=== PATIENT | female | born 1995 | race Caucasian/White ===

== ENCOUNTER 2023-06-09 19:16 | Emergency (ER) | payer OTHER ==
[~2023-06-09] VITALS: Ht 152.4 cm; Wt 99.8 kg
[2023-06-09 21:41] VITALS: BP 110/62
== END 2023-06-09 21:48 | disposition home or self-care (01) ==
LOC: ER 19:16
DX: G43.909 Migraine, unspecified, not intractable, without status migrainosus (principal); Z91.030 Bee allergy status; Z91.018 Allergy to other foods
CPT/HCPCS: 96374; 96375; 99283-25; A9270; J0780; J1200; J1885; J2405; J7030

== ENCOUNTER → 2024-01-24 | Outpatient (CLI) | payer OTHER ==
[2024-01-24 15:11] LABS: Candida Group, PCR NOT DETECTED (NOT DETECT); Candida glabrata-krusei, PCR NOT DETECTED (NOT DETECT)
[2024-01-24 15:12] LABS: Bacterial Vaginosis PCR Positive (NEGATIVE)
== END ==
LOC: LAB 12:49 → LAB SHORT 12:49
PROVIDERS: Advanced Practice Midwife
DX: Z01.419 Encounter for gynecological examination (general) (routine) without abnormal findings (principal); N92.1 Excessive and frequent menstruation with irregular cycle
CPT/HCPCS: 87481; 87661; 87801

== ENCOUNTER → 2024-03-11 | Outpatient (CLI) | payer OTHER | LOC: LAB SHORT 11:08 → LAB 11:08 | PROVIDERS: Advanced Practice Midwife | DX: Z01.419 Encounter for gynecological examination (general) (routine) without abnormal findings (principal) | CPT/HCPCS: G0123 ==

== ENCOUNTER 2024-08-25 06:23 | Day surgery (SDC) | payer OTHER ==
[~2024-08-25] VITALS: Ht 152.4 cm; Wt 104.9 kg
[2024-08-25] VITALS (17 sets, daily range): BP systolic 79–124; BP diastolic 54–93
[~2024-08-25 06:23] MED LIST: BUPROPION XL150 M1 PO; CeFAZolin Sodium 2,000 MG in NS 100 ML IV SCH; ESCI20 PO; Lactated Ringer's 1,000 ML IV SCH; MELATONIN5 M1 PO; NIAC500 PO; ROSUVASTATIN CA10 MG PO; SPIR50 PO; TOPI50 PO; VITAMIN D325 MC3 PO; VITB2 PO; ZYRTEC10 M2 PO
[2024-08-25] MEDS ORDERED: Phenazopyridine HCl 100 MG Tab PO SCH (06:25)
[2024-08-25] MEDS ORDERED: FentaNYL Citrate 50 MCG/ML 5 ML Injection ONE (06:30)
[2024-08-25] MEDS ORDERED: Sugammadex Sodium 200 MG/2ML SDV (100 MG/ML) ONE (06:30)
[2024-08-25] MEDS ORDERED: Ketorolac Tromethamine 30mg Vial ONE (06:30)
[2024-08-25] MEDS ORDERED: propofoL 20 ML IV ONE (06:30)
[2024-08-25] MEDS ORDERED: Dexamethasone Sod Phos 10 MG/ML 1ML VIAL ONE (06:30)
[2024-08-25] MEDS ORDERED: Rocuronium Bromide 10 MG/ML 5ML Injection IV ONE (06:30)
[2024-08-25] MEDS ORDERED: Ondansetron HCl 2 MG / ML 2ML Vial ONE (06:30)
[2024-08-25] MEDS ORDERED: PROP10 (06:53)
[2024-08-25] MEDS ORDERED: Bupivacaine 0.5% HCl 5 MG/ML 30MLVIAL ONE (07:01)
--- NOTE | 2024-08-25 07:19 | NUR ---
History, Chart, Medications and Allergies reviewed before start of procedure. Pre-Op teaching done. Pt verbalizes understanding. Patient confirms NPO status and agrees with scheduled surgery. PT UNABLE TO REMOVE LEFT NOSTRIL STUD AND L EARRING STUD. CHANDNI REFUSAL PAPERWORK SIGNED. PT GLASSES REMOVED AND GIVEN TO AT BS. PT BELONGINGS BAG PLACED UNDER RNEY.
[2024-08-25] MEDS ORDERED: Bupivacaine 0.5% Inj 10 ML Vial ONE (08:26)
[2024-08-25] MEDS ORDERED: Ondansetron HCl 2 MG / ML 2ML Vial IV PRN (10:00)
[2024-08-25] MEDS ORDERED: OxyCODONE HCL 5 MG TAB PO PRN ×2 (10:00→10:10)
[2024-08-25] MEDS ORDERED: Naloxone HCl 0.4MG / ML 1ML Vial IV PRN (10:00)
[2024-08-25] MEDS ORDERED: Metoclopramide HCl 5MG / ML 2ML Vial IV PRN (10:00)
[2024-08-25] MEDS ORDERED: Polyethylene Glycol 3350 17 gm PO PRN (10:05)
[2024-08-25] MEDS ORDERED: Simethicone 80 MG Chew PO PRN (10:05)
[2024-08-25] MEDS ORDERED: DiphenhydrAMINE HCL 25 MG Cap PO PRN (10:05)
[2024-08-25] MEDS ORDERED: FLU VACC TS2024-25(6MOS UP)/PF 45 MCG/0.5 ML SYRINGE IM SCH (10:05)
[2024-08-25] MEDS ORDERED: Lactated Ringer's 1,000 ML IV SCH (10:05)
[2024-08-25] MEDS ORDERED: HYDROmorphone HCl/Pf 1MG SYR IV PRN (10:05)
[2024-08-25] MEDS ORDERED: FentaNYL Citrate 50 MCG/ML 2 ML Injection ONE (10:17)
--- NOTE | 2024-08-25 11:12 | NUR ---
PT ARRIVED TO UNIT FROM PACU AMBULATED TO RESTROOM BUT DID NOT VOID. SAMUEL LUEVANO'Tamera IN OPERATING ROOM. AMBULATING TO BED AND IS LYIND DOWN. ORIENTED TO USE OF CALL LIGHT. VSS. SCD'S IN PLACE. LAP INCISIONS TO ABD X4 CDI W/TISS ADHESIVE. NO BLEEDING NOTED ON MIC PAD AT THIS TIME. SPOUSE BEDSIDE.
[2024-08-25] MEDS ORDERED: Ketorolac Tromethamine 30mg Vial IV SCH (12:00)
[2024-08-25] MEDS ORDERED: Acetaminophen 500 MG Tab PO SCH (12:00)
[2024-08-25] MEDS ORDERED: Ibuprofen 400 MG Tab PO SCH (16:00)
--- NOTE | 2024-08-25 18:34 | NUR ---
SUMMARY NO ACUTE CHANGES T/O SHIFT. PT HAS VOIDED. PAIN MANAGED PER EMAR. TAKING FLUIDS. SMELL OF DINNER MADE PT NAUSEATED; REMOVED TRAY AND NAUSEA RESOLVED. PT DID NOT NEED NAUSEA MEDS. INCISIONS TO ABD CDI. CALL LIGHT IN REACH.
[2024-08-25] MEDS ORDERED: Rosuvastatin Calcium 10 MG Tab PO SCH (21:00)
[2024-08-25] MEDS ORDERED: Topiramate 25 MG Tab PO SCH (21:00)
--- NOTE | 2024-08-26 04:03 | NUR ---
SHIFT SUMMARY POD 1 LAP HYSTR. NO ACUTE CHANGES OVERNIGHT. VSS. TOLERATING MIN ORALS, NO REPORTS OF N/V. LAP SITES x4 c WOUND GLUE C/D/I. PT REPORTS PAIN TOLERABLE, MEDICATED PER EMAR. MIN SANG DRAINAGE ON MIC PAD, CHANGED x1. VOIDING, DENIES PAINFUL URINATION, YELLOW IN COLOR, NO CLOTS VISUALIZED. AMB IND. ANTICIPATED DISCHARGE LATER TODAY. CALL LIGHT IN REACH, BED IN LOWEST POSITION, WILL REPORT TO DAY RN.
[2024-08-26 04:40] VITALS: BP 102/67
[2024-08-26 04:41] LABS: BASOPHILS ABSOLUTE AUTO 0.02 K/mm3 (0.00-0.23); BASOPHILS PERCENT AUTO 0 % (0-2); EOSINOPHILS ABSOLUTE AUTO 0.02 K/mm3 (0.00-0.68); EOSINOPHILS PERCENT AUTO 0 % (0-6); Hematocrit 34.8 % (33.0-51.0); Hemoglobin 11.4 g/dL (11.5-16.0); IMMATURE GRAN ABSOLUTE AUTO 0.02 K/mm3 (0.00-0.10); IMMATURE GRAN PERCENT AUTO 0 % (0-1); LYMPHOCYTES ABSOLUTE AUTO 2.02 K/mm3 (0.84-5.20); LYMPHOCYTES PERCENT AUTO 17 % (21-46); MONOCYTES ABSOLUTE AUTO 0.94 K/mm3 (0.16-1.47); MONOCYTES PERCENT AUTO 8 % (4-13); Mean Corpuscular HGB 29.3 pg (26.0-34.0); Mean Corpuscular HGB Conc 32.8 g/dL (31.5-36.5); Mean Corpuscular Volume 90 fL (80-100); Mean Platelet Volume 9.9 fL (9.1-12.4); NEUTROPHILS ABSOLUTE AUTO 8.84 K/mm3 (1.96-9.15); NEUTROPHILS PERCENT AUTO 75 % (41-73); Platelet Count 253 K/mm3 (150-400); RDW Coefficient Variation 13.2 % (11.7-14.2); RDW Standard Deviation 42.6 fL (35.1-46.3); Red Blood Cell Count 3.89 M/mm3 (3.80-5.20); White Blood Cell Count 11.86 K/mm3 (4.00-11.30)
[2024-08-26 07:51] VITALS: BP 92/44
[2024-08-26 08:12] VITALS: BP 103/60
[2024-08-26] MEDS ORDERED: Polyethylene Glycol 3350 17 gm PO SCH (09:00)
[2024-08-26] MEDS ORDERED: Loratadine 10 MG Tab PO SCH (09:00)
[2024-08-26] MEDS ORDERED: Citalopram Hydrobromide 20 MG Tab PO SCH (09:00)
[2024-08-26] MEDS ORDERED: buPROPion HCL 150 MG TAB.SR.12H PO SCH (09:00)
[2024-08-26] MEDS ORDERED: Spironolactone 50 MG Tab PO SCH (09:00)
[2024-08-26 11:54] VITALS: BP 122/71
--- NOTE | 2024-08-26 12:36 | NUR ---
DISCHARGE PT PROVIDED WITH WRITTEN AND VERBAL DISCHARGE INSTRUCTIONS, SHE REPORTED UNDERSTANDING. PT ABLE TO VOID, TOLERATE PO, PAIN MANAGED, AMBULATE AND VSS PRIOR TO DISCHARGE. PT REPORTS HER PRESCRITIONS ARE READY AT HER PHARMACY. PT ASSISTED OUT IN W/C AT APPROXIMATELY 1228.
== END 2024-08-26 12:28 | disposition home or self-care (01) ==
LOC: ORSCMMR 06:23 → ORD 07:30 → SURS 10:37 → ORSCMMR 23:00 → SURS 23:00 → ORSCMMR 08-26 12:28
PROVIDERS: Obstetrics & Gynecology
PROC: 0UB74ZZ Excision of Bilateral Fallopian Tubes, Percutaneous Endoscopic Approach (ICD-10-PCS; principal; 2024-08-26)
PROC: 0UT94ZZ Resection of Uterus, Percutaneous Endoscopic Approach (ICD-10-PCS; principal; 2024-08-26)
DX: N80.03 Adenomyosis of the uterus (principal); D25.2 Subserosal leiomyoma of uterus; N80.00 Endometriosis of the uterus, unspecified; N92.1 Excessive and frequent menstruation with irregular cycle; J45.909 Unspecified asthma, uncomplicated; F32.A Depression, unspecified; E66.9 Obesity, unspecified; Z68.42 Body mass index [BMI] 45.0-49.9, adult; Z79.899 Other long term (current) drug therapy
CPT/HCPCS: 36415; 85025; 86850; 86900; 86901; 88307; 94760; A9270; J0690; J1100; J1885; J2405; J2704; J3010; J7120

== ENCOUNTER → 2024-09-20 | Outpatient (CLI) | payer OTHER ==
[~2024-09-20] MED LIST changes: -CeFAZolin Sodium 2,000 MG in NS 100 ML IV SCH; -Lactated Ringer's 1,000 ML IV SCH; +PROP10
[2024-09-20 16:22] LABS: Bacterial Vaginosis PCR Negative (NEGATIVE); Candida glabrata-krusei, PCR NOT DETECTED (NOT DETECT)
[2024-09-20 16:49] LABS: Candida Group, PCR DETECTED (NOT DETECT)
== END ==
LOC: LAB SHORT 13:10
PROVIDERS: Physician Assistant
DX: N89.8 Other specified noninflammatory disorders of vagina (principal)
CPT/HCPCS: 87481; 87661; 87801

== ENCOUNTER → 2024-09-30 | Outpatient (CLI) | payer OTHER ==
[2024-09-30 15:36] LABS: Bacterial Vaginosis PCR Negative (NEGATIVE); Candida Group, PCR NOT DETECTED (NOT DETECT); Candida glabrata-krusei, PCR NOT DETECTED (NOT DETECT)
== END ==
LOC: LAB 11:19 → LAB SHORT 11:19
PROVIDERS: Obstetrics & Gynecology
DX: N89.8 Other specified noninflammatory disorders of vagina (principal)
CPT/HCPCS: 81515

== ENCOUNTER → 2024-10-06 | Outpatient (CLI) | payer OTHER ==
[2024-10-06 17:10] LABS: Source, Urine Clean Catch
[2024-10-06 18:45] LABS: Appearance, Urine Cloudy (Clear); Bilirubin, Urine Neg (Neg); Blood, Urine 4+ (Neg); Color, Urine Yellow (P-Yellow); Glucose Qualitative, Urine Neg (Neg); Ketones, Urine Neg (Neg); Leukocyte Esterase, Urine 3+ (Neg); Nitrite, Urine Neg (Neg); Protein, Urine 2+ (Neg); Urobilinogen, Urine 1+ (Normal)
[2024-10-06 18:59] LABS: Bacteria Many /hpf; Calcium Oxalate Crystals Few /hpf; Red Blood Cells, Urine 25-50 /hpf (0-2); Squamous Epithelial Cells Few /hpf (Few); White Blood Cells, Urine TNTC /hpf (0-5)
== END | disposition home or self-care (01) ==
LOC: LAB 17:08 → LAB SHORT 17:08
PROVIDERS: Obstetrics & Gynecology
DX: R30.0 Dysuria (principal)
CPT/HCPCS: 81001; 87077; 87086; 87186